=== PATIENT | female | born 1985 | race Caucasian/White ===

== ENCOUNTER 2016-05-10 19:07 | Emergency (ER) | payer OTHER ==
[2016-05-10 19:37] VITALS: BP 129/86; PULSE 84; TEMP 97.9; BMI 25.2
[2016-05-10] MEDS ORDERED: SODIUM CHLORIDE 1,000 ML IV STA (20:05)
--- NOTE | 2016-05-10 20:05 | PDOC ---
*Physical Exam - Vital Signs Last Vital Signs Temp Pulse Resp BP Pulse Ox 97.9 F 84 18 129/86 97 05/10/16 19:10 05/10/16 19:10 05/10/16 19:10 05/10/16 19:10 05/10/16 19:10 ED Treatment Course - LABORATORY CBC & Chemistry Diagram: 05/10/16 22:07 05/10/16 22:07 Medical Decision Making - Medical Decision Making 05/10/16 20:04 Pt seen by the Advanced Practice Provider under my direct supervision Ancillary studies reviewed I agree with plan as outlined by the Advanced Practice Provider TRAMAINE Kaufman *DC/Admit/Observation/Transfer Diagnosis at time of Disposition: Nephrolithiasis - Discharge Dispostion Disposition: HOME Condition at time of disposition: Stable - Prescriptions Prescriptions: Ketorolac Tromethamine [Toradol] 10 mg PO TID #21 tablet - Referrals Referrals: Justo Nixon MD [Staff Physician] - Jc Lyons [Primary Care Provider] - - Patient Instructions Printed Discharge Instructions: DI for Kidney Stones Additional Instructions: Increase fluid Take tylenol as needed for mild pain Rx: toradol as needed for severe pain Follow up with the urologist Strain your urine Return to the ER for severe/persistent/worsening symptoms - Post Discharge Activity Work/School Note: Back to Work
--- NOTE | 2016-05-10 20:15 | PDOC ---
History of Present Illness - General Chief Complaint: Urinary Problem Stated Complaint: BACK PAIN/PELVIC PAIN/URINARY PROBLEM Time Seen by Provider: 05/10/16 19:50 History Source: Patient Exam Limitations: No Limitations - History of Present Illness Travel History: No Timing/Duration: reports: intermittent Abdominal Pain Onset Location: reports: suprapubic, flank (right) Pain Radiation: reports: groin Activities at Onset: reports: none Past History - Travel Traveled outside of the country in the last 30 days: No Close contact w/someone who was outside of country & ill: No - Past Medical History Allergies/Adverse Reactions: Allergies Allergy/AdvReac Type Severity Reaction Status Date / Time No Known Allergies Allergy Verified 05/10/16 19:37 Home Medications: Ambulatory Orders Vitamin Tablet 1 tab PO DAILY 02/02/12 Cyclobenzaprine HCl [Flexeril -] 10 mg PO TID #21 tablet 12/01/15 Ketorolac Tromethamine [Toradol] 10 mg PO TID #21 tablet 05/10/16 - Immunization History Immunization Up to Date: Yes - Psycho/Social/Smoking Cessation Hx Anxiety: No Suicidal Ideation: No Smoking Status: No Smoking History: Never smoked Have you smoked in the past 12 months: No Number of Cigarettes Smoked Daily: 0 Information on smoking cessation initiated: No Hx Alcohol Use: No Drug/Substance Use Hx: No Substance Use Type: None Review of Systems - Review of Systems Able to Perform ROS?: Yes Comments:: 05/10/16 20:35 CONSTITUTIONAL: Absent: fever, chills, diaphoresis, generalized weakness, malaise, loss of appetite HEENT: Absent: rhinorrhea, nasal congestion, throat pain, throat swelling, difficulty swallowing, mouth swelling, ear pain, eye pain, visual Changes CARDIOVASCULAR: Absent: chest pain, loss of consciousness, palpitations, irregular heart rate, peripheral edema RESPIRATORY: Absent: cough, shortness of breath, dyspnea with exertion, orthopnea, wheezing, stridor, hemoptysis GASTROINTESTINAL: Absent: abdominal pain, abdominal distension, nausea, vomiting, diarrhea, constipation, melena, hematochezia GENITOURINARY: +dysuria, frequency, urgency, hesitancy, flank pain Absent: hematuria, genital pain MUSCULOSKELETAL: Absent: myalgia, arthralgia, joint swelling SKIN: Absent: rash, itching, pallor HEMATOLOGIC/IMMUNOLOGIC: Absent: easy bleeding, easy bruising, lymphadenopathy, frequent infections ENDOCRINE: Absent: unexplained weight gain, unexplained weight loss, heat intolerance, cold intolerance NEUROLOGIC: Absent: headache, focal weakness or paresthesias, dizziness, unsteady gait, seizure, mental status changes, bladder or bowel incontinence PSYCHIATRIC: Absent: anxiety, depression, suicidal or homicidal ideation, hallucinations. Is the patient limited Uzbek proficient: No *Physical Exam - Vital Signs Last Vital Signs Temp Pulse Resp BP Pulse Ox 97.9 F 84 18 129/86 97 05/10/16 19:10 05/10/16 19:10 05/10/16 19:10 05/10/16 19:10 05/10/16 19:10 - Physical Exam Comments: 05/10/16 20:36 GENERAL: Well developed, well nourished. Awake and alert. No acute distress. HEENT: Normocephalic, atraumatic. PERRLA, EOMI. No conjunctival pallor. Sclera are non- icteric. Moist mucous membranes. Oropharynx is clear. NECK: Supple. Full ROM. No JVD. Carotid pulses 2+ and symmetric, without bruits. No thyromegaly. No lymphadenopathy. CARDIOVASCULAR: Regular rate and rhythm. No murmurs, rubs, or gallops. Distal pulses are 2+ and symmetric. PULMONARY: No evidence of respiratory distress. Lungs clear to auscultation bilaterally. No wheezing, rales or rhonchi. ABDOMINAL: Soft. Non-tender. Non-distended. No rebound or guarding. No organomegaly. Normoactive bowel sounds. MUSCULOSKELETAL Right CVA tenderness. Normal range of motion at all joints. No bony deformities or tenderness. EXTREMITIES: No cyanosis. No clubbing. No edema. No calf tenderness. SKIN: Warm and dry. Normal capillary refill. No rashes. No jaundice. NEUROLOGICAL: Alert, awake, appropriate. Cranial nerves 2-12 intact. No deficits to light touch and temperature in face, upper extremities and lower extremities. No motor deficits in the in face, upper extremities and lower extremities. Normoreflexic in the upper and lower extremities. Normal speech. Toes are down- going bilaterally. Gait is normal without ataxia. PSYCHIATRIC: Cooperative. Good eye contact. Appropriate mood and affect. ED Treatment Course - LABORATORY CBC & Chemistry Diagram: 05/10/16 22:07 05/10/16 22:07 Progress Note - Progress Note Progress Note: 30-year-old female with a history of left-sided pyelonephritis presents to the emergency department complaining of 5/10 intermittent right flank pain radiating to the right suprapubic area with burning upon urination, frequency/ urgency/hesitancy. Patient denies any fever, chills, nausea/vomiting, general malaise, chest pain, shortness of breath, abdominal pains. *DC/Admit/Observation/Transfer Diagnosis at time of Disposition: Nephrolithiasis - Discharge Dispostion Disposition: HOME Condition at time of disposition: Stable Admit: No - Prescriptions Prescriptions: Ketorolac Tromethamine [Toradol] 10 mg PO TID #21 tablet - Referrals Referrals: Jc Lyons [Primary Care Provider] - Justo Nixon MD [Staff Physician] - - Patient Instructions Printed Discharge Instructions: DI for Kidney Stones Additional Instructions: Increase fluid Take tylenol as needed for mild pain Rx: toradol as needed for severe pain Follow up with the urologist Strain your urine Return to the ER for severe/persistent/worsening symptoms - Post Discharge Activity Work/School Note: Back to Work
[2016-05-10 21:42] LABS: URINE APPEARANCE SLCLOUDY; URINE BILIRUBIN NEGATIVE (NEGATIVE); URINE BLOOD 3+ (NEGATIVE); URINE COLOR YELLOW; URINE GLUCOSE (UA) NEGATIVE (NEGATIVE); URINE KETONE TRACE (NEGATIVE); URINE LEUK ESTERASE TRACE (NEGATIVE); URINE NITRITE NEGATIVE (NEGATIVE); URINE PROTEIN 1+ (NEGATIVE); URINE UROBILINOGEN NEGATIVE E.U./dl (0.2-1.0)
[2016-05-10 21:49] LABS: CALCIUM OXALATE CRYSTALS MODERATE /hpf (NONE SEEN); URINE HYALINE CAST 2 /lpf; URINE MUCUS MANY; URINE RBC 663 /hpf (0-3); URINE WBC 8 /hpf (3-5)
[2016-05-10] MEDS ORDERED: KETOROLAC TROMETHAMINE 30 MG/1 ML VIAL IVPUSH ONE (22:07)
[2016-05-10] MEDS ORDERED: KETOROLAC TROMETHAMINE 30 MG/1 ML VIAL ONE (22:11)
[2016-05-10 22:40] LABS: BASOPHIL 0.1 % (0-2.0); EOSINOPHIL 0.2 % (0-4.5); MCH 29.9 pg (25.7-33.7); MCHC 33.4 g/dl (32.0-36.0); MEAN CELL VOLUME 89.6 fl (80-96); MEAN PLT VOLUME 8.8 fl (7.5-11.1); NEUTROPHILS 84.7 % (42.8-82.8); PLATELET COUNT 307 K/MM3 (134-434); RDW 14.6 % (11.6-15.6); WHITE BLOOD COUNT 10.3 K/mm3 (4.0-10.0)
[2016-05-10 23:04] LABS: ALBUMIN 3.2 g/dl (3.4-5.0); ALK PHOS 84 U/L (45-117); ANION GAP 7 (8-16); BILIRUBIN,TOTAL 0.2 mg/dL (0.2-1.0); CALCIUM 8.5 mg/dL (8.5-10.1); CO2 28 mmol/L (21-32); CREATININE 0.6 mg/dL (0.55-1.02); GLUCOSE,RANDOM 90 mg/dL (74-106); SGOT/AST 37 U/L (15-37); SGPT/ALT 76 U/L (12-78); TOT PROT 7.7 g/dl (6.4-8.2)
== END 2016-05-11 | disposition home or self-care (01) ==
LOC: JER 19:07 → SUPCPDRO 19:07 → JER 05-11
PROC: 3E0337Z Introduction of Electrolytic and Water Balance Substance into Peripheral Vein, Percutaneous Approach (ICD-10-PCS; principal; 2016-05-10)
PROC: 3E0333Z Introduction of Anti-inflammatory into Peripheral Vein, Percutaneous Approach (ICD-10-PCS; 2016-05-10)
DX: N20.0 Calculus of kidney (principal)
CPT/HCPCS: 36415; 74176; 80053; 81003; 81015; 84703; 85025; 87086; 96361; 96374; 99282-25

== ENCOUNTER → 2016-09-08 | Emergency (ER) | payer OTHER ==
[~2016-09-08] MED LIST: ACETAMINOPHEN 1000 MG/100 ML VIAL (NON FORMULARY) IVPB ONE; FAMOTIDINE 20 MG/50 ML IVPB 50 ML IVPB ONE; LEVOFLOXACIN 500 MG TABLET (FP) ONE; LEVOFLOXACIN 500 MG TABLET (FP) PO ONE; MAG HYDROX/AL HYDROX/SIMETH 30 ML UNIT-DOSE CUP ONE; MAG HYDROX/AL HYDROX/SIMETH 30 ML UNIT-DOSE CUP PO ONE; ONDANSETRON 4 MG/2 ML VIAL IVPB ONE; ONDANSETRON 4 MG/2 ML VIAL ONE; SODIUM CHLORIDE 1,000 ML IV STA; metroNIDAZOLE 250 MG TABLET ONE; metroNIDAZOLE 250 MG TABLET PO ONE
[2016-09-08 23:24] VITALS: TEMP 98.3; BMI 22.2
--- NOTE | 2016-09-08 23:59 | PDOC ---
History of Present Illness - General History Source: Patient Exam Limitations: No Limitations - History of Present Illness Initial Comments: 09/09/16 00:06 The patient is a 31 year old female with past medical history of HIV (on heart therapy) and fungal esophagitis who presents to the ED with complaints of abdominal pain and diarrhea for the past two weeks with onset of nausea and vomiting today. The patient states the pain is diffuse but mostly felt in her lower abdomen and epigastrium and experiences daily loose stools. She reports nonbloody and nonbilious vomiting. She states her symptoms are very similar to when she had her fungal esophagitis. The patient denies any recent illness, fever, chills, chest pain, shortness of breath, or urinary symptoms. The patient reports following up with Dr. Mcghee. <Brandy Swan - Last Filed: 09/09/16 02:37> - General History Source: Patient Exam Limitations: No Limitations <Austyn Hankins - Last Filed: 09/09/16 03:03> - General Chief Complaint: Nausea/Vomiting Stated Complaint: Vomiting/Diarrhea Time Seen by Provider: 09/08/16 23:35 Past History <Brandy Swan - Last Filed: 09/09/16 02:37> - Past Medical History Other medical history: Pt denies - Immunization History Immunization Up to Date: Yes - Psycho/Social/Smoking Cessation Hx Anxiety: No Suicidal Ideation: No Smoking Status: No Smoking History: Never smoked Have you smoked in the past 12 months: No Number of Cigarettes Smoked Daily: 0 Information on smoking cessation initiated: No Hx Alcohol Use: No Drug/Substance Use Hx: No Substance Use Type: None <Austyn Hankins - Last Filed: 09/09/16 03:03> - Past Medical History Allergies/Adverse Reactions: Allergies Allergy/AdvReac Type Severity Reaction Status Date / Time No Known Allergies Allergy Verified 09/08/16 23:21 Home Medications: Ambulatory Orders Vitamin Tablet 1 tab PO DAILY 02/02/12 Cyclobenzaprine HCl [Flexeril -] 10 mg PO TID #21 tablet 12/01/15 Ketorolac Tromethamine [Toradol] 10 mg PO TID #21 tablet 05/10/16 Ciprofloxacin [Cipro -] 500 mg PO Q12H PRN #20 tablet 09/09/16 Famotidine [Pepcid] 20 mg PO BID PRN #14 tablet 09/09/16 Mag Hydrox/Al Hydrox/Simeth [Mylanta Suspension -] 30 ml PO Q6H PRN #1 bottle Metronidazole [Flagyl -] 500 mg PO TID #30 tablet 09/09/16 Ondansetron HCl [Zofran] 4 mg PO Q8H PRN #12 tablet 09/09/16 Review of Systems - Review of Systems Able to Perform ROS?: Yes Comments:: 09/09/16 00:06 GENERAL/CONSTITUTIONAL: No fever or chills. No weakness. HEAD, EYES, EARS, NOSE AND THROAT: No change in vision. No ear pain or discharge. No sore throat. CARDIOVASCULAR: No chest pain or shortness of breath. RESPIRATORY: No cough, wheezing, or hemoptysis. GASTROINTESTINAL: Present: nausea, vomiting, diarrhea, abdominal pain No constipation. GENITOURINARY: No dysuria, frequency, or change in urination. MUSCULOSKELETAL: No joint or muscle swelling or pain. No neck or back pain. SKIN: No rash NEUROLOGIC: No headache, vertigo, loss of consciousness, or change in strength/ sensation. ENDOCRINE: No increased thirst. No abnormal weight change. HEMATOLOGIC/LYMPHATIC: No anemia, easy bleeding, or history of blood clots. ALLERGIC/IMMUNOLOGIC: No hives or skin allergy. All Other Systems: Reviewed and Negative <Brandy Swan - Last Filed: 09/09/16 02:37> *Physical Exam - Vital Signs Last Vital Signs Temp Pulse Resp BP Pulse Ox 98.3 F 114 H 20 138/74 98 09/08/16 23:21 09/08/16 23:21 09/08/16 23:21 09/08/16 23:21 09/08/16 23:21 - Physical Exam Comments: 09/09/16 00:08 GENERAL: Awake, alert, and fully oriented, in no acute distress HEAD: No signs of trauma EYES: PERRLA, EOMI, sclera anicteric, conjunctiva clear ENT: Auricles normal inspection, hearing grossly normal, nares patent, oropharynx clear without exudates. Moist mucosa NECK: Normal ROM, supple, no lymphadenopathy, JVD, or masses LUNGS: Breath sounds equal, clear to auscultation bilaterally. No wheezes, and no crackles HEART: Regular rate and rhythm, normal S1 and S2, no murmurs, rubs or gallops ABDOMEN: Epigastric tenderness, normoactive bowel sounds. No guarding, no rebound. No masses EXTREMITIES: Normal range of motion, no edema. No clubbing or cyanosis. No cords, erythema, or tenderness NEUROLOGICAL: Cranial nerves II through XII grossly intact. Normal speech, normal gait SKIN: Warm, Dry, normal turgor, no rashes or lesions noted. <Brandy Swan - Last Filed: 09/09/16 02:37> - Vital Signs Last Vital Signs Temp Pulse Resp BP Pulse Ox 98.3 F 114 H 20 138/74 98 09/08/16 23:21 09/08/16 23:21 09/08/16 23:21 09/08/16 23:21 09/08/16 23:21 <NhiAustyn - Last Filed: 09/09/16 03:03> ED Treatment Course - LABORATORY CBC & Chemistry Diagram: 09/08/16 23:50 09/08/16 23:50 - ADDITIONAL ORDERS Additional order review: 09/08/16 23:50 RBC 4.75 D MCV 86.4 MCHC 33.5 RDW 13.0 D MPV 9.0 Neutrophils % 81.6 Lymphocytes % 12.5 D Monocytes % 5.4 Eosinophils % 0.4 D Basophils % 0.1 - RADIOLOGY Radiograph Interpretation: 09/09/16 01:37 A prior examination dated May 10, 2016 was reviewed. Findings: The lung bases are clear. The liver, gallbladder, spleen and pancreas all have a normal appearance. The adrenal glands are unremarkable. The kidneys have a normal appearance and enhance symmetrically. There is no evidence of urinary tract obstruction. The gastrointestinal tract does not appear obstructed. A long segment of slightly thickwalled hyperemic bowel is noted in the mid to lower abdomen including segments of distal ileum. The colon is fluid-filled. There is no mural thickening or infiltration of the mesocolon to indicate colitis. The uterus is anteverted. No adnexal masses are seen. The urinary bladder is nondistended. No abdominal or pelvic adenopathy is seen. No lytic or blastic destructive osseous lesions are seen. Impression: Slightly thickened hyperemic segments of small bowel in the mid to lower abdomen may represent enteritis. No infiltration of the mesentery is noted. Fluid-filled colon consistent with diarrhea. No mural thickening or infiltration of the mesocolon is seen to indicate colitis. THIS DOCUMENT HAS BEEN ELECTRONICALLY SIGNED Hubert Leal M.D. Exam: Abdominal sonogram Images: 52 Clinical indication: Right upper quadrant sonogram. Findings: The pancreas has a normal appearance and echotexture. The visualized aorta and proximal IVC are unremarkable. The liver has a normal appearance and echotexture measures 15.3 cm in length. The right kidney has a normal appearance and echotexture measures 10.6 cm in length. No parenchymal mass, shadowing calculus or hydronephrosis is seen. Dependent sludge is noted in the gallbladder. The CBD measures 3 mm in diameter within normal limits. There is no mural thickening or pericholecystic fluid. Hepatopetal flow is demonstrated in the main portal vein. Impression: Normal appearance of the liver, Sludge in the gallbladder. No mural thickening or pericholecystic fluid. CBD within normal limits. THIS DOCUMENT HAS BEEN ELECTRONICALLY SIGNED Hubert Leal M.D. <Brandy Swan - Last Filed: 09/09/16 02:37> - LABORATORY CBC & Chemistry Diagram: 09/08/16 23:50 09/08/16 23:50 - RADIOLOGY Radiology Studies Ordered: Category Date Time Status ABDOMEN & PELVIS CT WITH CONTR [CT] Stat CT Scan 09/08/16 23:52 Ordered <Austyn Hankins - Last Filed: 09/09/16 03:03> Medical Decision Making - Medical Decision Making 09/08/16 23:57 A portion of this note was documented by scribe services under my direction. I have reviewed the details of the note, within reason, and agree with the documentation with the following case summary and management plan written by me. Patient treated in the ED. Nursing notes are reviewed and incorporated into the medical decision-making. Vital signs reviewed. Peripheral IV access obtained by the nurse, laboratory studies are drawn and sent, reviewed and interpreted by myself. Vital Signs Temp Pulse Resp BP Pulse Ox 98.3 F 114 H 20 138/74 98 09/08/16 23:21 09/08/16 23:21 09/08/16 23:21 09/08/16 23:21 09/08/16 23:21 31 year old female history of HIV on heart therapy, unknown CD4 count on heart therapy, history of fungal esophagitis presents with diarrhea and abdominal discomfort for 2 weeks. Patient has had frequent loose stooling but no fevers or chills. Start develop nausea and vomiting today. Denies fevers. Came to the ED for further evaluation. We'll need to rule out HIV-associated diarrhea. Colitis is within the differential. We'll obtain labs, CAT scan the abdomen pelvis and reassess. 09/09/16 02:39 CBC, BMP 09/08/16 23:50 09/08/16 23:50 CMP Sodium 136 mmol/L (136-145) 09/08/16 23:50 Potassium 3.3 mmol/L (3.5-5.1) L 09/08/16 23:50 Chloride 103 mmol/L (98-107) 09/08/16 23:50 Carbon Dioxide 22 mmol/L (21-32) D 09/08/16 23:50 Anion Gap 11 (8-16) 09/08/16 23:50 BUN 28 mg/dL (7-18) H D 09/08/16 23:50 Creatinine 0.8 mg/dL (0.55-1.02) D 09/08/16 23:50 Creat Clearance w eGFR > 60 (>60) 09/08/16 23:50 Random Glucose 130 mg/dL (74-106) H D 09/08/16 23:50 Calcium 9.5 mg/dL (8.5-10.1) 09/08/16 23:50 Phosphorus 3.8 mg/dL (2.5-4.9) 09/08/16 23:50 Magnesium 2.3 mg/dL (1.8-2.4) 09/08/16 23:50 Total Bilirubin 0.4 mg/dL (0.2-1.0) D 09/08/16 23:50 AST 73 U/L (15-37) H D 09/08/16 23:50 ALT 96 U/L (12-78) H D 09/08/16 23:50 Alkaline Phosphatase 78 U/L (45-117) 09/08/16 23:50 Total Protein 10.6 g/dl (6.4-8.2) H D 09/08/16 23:50 Albumin 4.6 g/dl (3.4-5.0) D 09/08/16 23:50 Lipase 143 U/L (73-393) 09/08/16 23:50 Serum , Qual Negative 09/08/16 23:50 The patient's CAT scan demonstrates findings consistent with thickened hyperemic segments of small bowel which could represent enteritis and likely diarrhea. No colitis is appreciated. Patient's lab demonstrate mildly elevated AST and ALT. Right upper quadrant ultrasound was ordered which demonstrate normal appearance of liver and sludge in the gallbladder but no thickening or pericholecystitc fluid. 09/09/16 02:58 Patient reports feeling better. We'll give ciprofloxacin and Flagyl given the length of symptoms and her history. Patient will follow up with her doctor, Dr. Mcghee. Given her LFTs, I advised patient to follow up with her doctor regarding the results. Copy results given. I discussed the physical exam findings, ancillary test results and final diagnoses with the patient. I answered all of the patient's questions. The patient was satisfied with the care received and felt comfortable with the discharge plan and treatment plan. The patient will call their primary care physician within 24 hours to arrange follow-up and will return to the Emergency Department with any new, persistant or worsening symptoms. <Austyn Hankins - Last Filed: 09/09/16 03:03> *DC/Admit/Observation/Transfer - Attestations Scribe Attestion: 09/09/16 00:09 Documentation prepared by Brandy Swan, acting as medical receptionist assistant for Austyn Hankins MD. <Brandy Swan - Last Filed: 09/09/16 02:37> - Discharge Dispostion Admit: No <Austyn Hankins - Last Filed: 09/09/16 03:03> Diagnosis at time of Disposition: Diarrhea Qualifiers: Diarrhea type: unspecified type Qualified Code(s): R19.7 - Diarrhea, unspecified - Discharge Dispostion Disposition: HOME Condition at time of disposition: Improved - Prescriptions Prescriptions: Ciprofloxacin [Cipro -] 500 mg PO Q12H PRN #20 tablet PRN Reason: Diarrhea Metronidazole [Flagyl -] 500 mg PO TID #30 tablet Mag Hydrox/Al Hydrox/Simeth [Mylanta Suspension -] 30 ml PO Q6H PRN #1 bottle PRN Reason: Abdominal Pain Famotidine [Pepcid] 20 mg PO BID PRN #14 tablet PRN Reason: Abdominal Pain Ondansetron HCl [Zofran] 4 mg PO Q8H PRN #12 tablet PRN Reason: Nausea - Referrals Referrals: Zach Mcghee MD [Staff Physician] - - Patient Instructions Printed Discharge Instructions: Diarrhea Additional Instructions: Please follow up with DR. Mcghee. Drink plenty of fluids and rest. Take the antibiotics as prescribed.
[2016-09-09] LABS: BASOPHIL 0.1 % (0-2.0); EOSINOPHIL 0.4 % (0-4.5); MCH 28.9 pg (25.7-33.7); MCHC 33.5 g/dl (32.0-36.0); MEAN CELL VOLUME 86.4 fl (80-96); NEUTROPHILS 81.6 % (42.8-82.8); PLATELET COUNT 364 K/MM3 (134-434); WHITE BLOOD COUNT 8.6 K/mm3 (4.0-10.0)
[2016-09-09 00:24] LABS: INR 1.25 (0.82-1.09); PROTHROMBIN TIME (PATIENT) 13.8 SEC (9.98-11.88)
[2016-09-09 00:25] LABS: ALBUMIN 4.6 g/dl (3.4-5.0); ALK PHOS 78 U/L (45-117); ANION GAP 11 (8-16); BILIRUBIN,TOTAL 0.4 mg/dL (0.2-1.0); CALCIUM 9.5 mg/dL (8.5-10.1); CO2 22 mmol/L (21-32); CREATININE 0.8 mg/dL (0.55-1.02); GLUCOSE,RANDOM 130 mg/dL (74-106); MAGNESIUM 2.3 mg/dL (1.8-2.4); PHOSPHOROUS 3.8 mg/dL (2.5-4.9); SGOT/AST 73 U/L (15-37); SGPT/ALT 96 U/L (12-78)
[2016-09-09 00:26] LABS: TOT PROT 10.6 g/dl (6.4-8.2)
[2016-09-09 00:27] LABS: ACTIVATED PTT 35.1 SECONDS (26.9-34.4)
[2016-09-09 03:32] VITALS: BP 114/76; PULSE 79
== END | disposition home or self-care (01) ==
LOC: JER 22:49
PROC: 3E033GC Introduction of Other Therapeutic Substance into Peripheral Vein, Percutaneous Approach (ICD-10-PCS; principal; 2016-09-08)
PROC: 3E033NZ Introduction of Analgesics, Hypnotics, Sedatives into Peripheral Vein, Percutaneous Approach (ICD-10-PCS; 2016-09-08)
PROC: 3E033GC Introduction of Other Therapeutic Substance into Peripheral Vein, Percutaneous Approach (ICD-10-PCS; 2016-09-08)
DX: R19.7 Diarrhea, unspecified (principal); Z21 Asymptomatic human immunodeficiency virus [HIV] infection status; B37.81 Candidal esophagitis
CPT/HCPCS: 36415; 74177-TC; 76705-TC; 80053; 81003; 83690; 83735; 84100; 84703; 85025; 85610; 85730; 96365; 96375; 99282-25

== ENCOUNTER 2016-10-03 11:17 | Inpatient (IN) | payer OTHER ==
[2016-10-03 11:28] VITALS: BMI 20.6
--- NOTE | 2016-10-03 11:41 | PDOC ---
History of Present Illness - General Chief Complaint: Sore Throat Stated Complaint: THROAT PAIN (PCP SENT) Time Seen by Provider: 10/03/16 11:40 History Source: Patient Exam Limitations: No Limitations - History of Present Illness Initial Comments: CHIEF COMPLAINT: HISTORY OF PRESENT ILLNESS: Vital signs on arrival are notable for pulse of 105. REVIEW OF SYSTEMS: GENERAL/CONSTITUTIONAL: Subjective fever/chills. No weakness. No weight change. HEAD, EYES, EARS, NOSE AND THROAT: No change in vision. No ear pain or discharge. No sore throat. CARDIOVASCULAR: No chest pain or shortness of breath. RESPIRATORY: No cough, wheezing, or hemoptysis. GASTROINTESTINAL: See history of present illness. GENITOURINARY: No dysuria, frequency, or change in urination. MUSCULOSKELETAL: No joint or muscle swelling or pain. No neck or back pain. SKIN: No rash or easy bruising. NEUROLOGIC: No headache, vertigo, loss of consciousness, or loss of sensation. PHYSICAL EXAM: GENERAL: The patient is awake, alert, and fully oriented, in no acute distress. HEAD: Normal with no signs of trauma. ENT: Pupils equal, round and reactive to light, extraocular movements intact, sclera anicteric, conjunctiva clear. Neck supple. LUNGS: Clear to auscultation bilaterally. Normal excursion. No respiratory distress or use of accessory muscles. CV: RRR, S1/S2, no MRG. Cap refill < 2 sec. ABDOMEN: Soft, non-distended, non-tender even to deep palpation, no hepatomegaly or splenomegaly, no masses. EXTREMITIES: Normal range of motion, no edema. NEUROLOGICAL: Normal speech, normal gait. CN II-XII grossly intact. PSYCH: Normal mood, normal affect. SKIN: Warm, dry, normal turgor, no rashes or lesions noted. Past History - Past Medical History Allergies/Adverse Reactions: Allergies Allergy/AdvReac Type Severity Reaction Status Date / Time No Known Allergies Allergy Verified 10/03/16 11:26 Home Medications: Ambulatory Orders Vitamin Tablet 1 tab PO DAILY 02/02/12 Cyclobenzaprine HCl [Flexeril -] 10 mg PO TID #21 tablet 12/01/15 Ketorolac Tromethamine [Toradol] 10 mg PO TID #21 tablet 05/10/16 Ciprofloxacin [Cipro -] 500 mg PO Q12H PRN #20 tablet 09/09/16 Famotidine [Pepcid] 20 mg PO BID PRN #14 tablet 09/09/16 Mag Hydrox/Al Hydrox/Simeth [Mylanta Suspension -] 30 ml PO Q6H PRN #1 bottle Metronidazole [Flagyl -] 500 mg PO TID #30 tablet 09/09/16 Ondansetron HCl [Zofran] 4 mg PO Q8H PRN #12 tablet 09/09/16 - Immunization History Immunization Up to Date: Yes - Psycho/Social/Smoking Cessation Hx Anxiety: No Suicidal Ideation: No Smoking Status: No Smoking History: Never smoked Have you smoked in the past 12 months: No Number of Cigarettes Smoked Daily: 0 Hx Alcohol Use: No Drug/Substance Use Hx: No Substance Use Type: None *Physical Exam - Vital Signs Last Vital Signs Temp Pulse Resp BP Pulse Ox 98.5 F 105 H 20 110/75 97 10/03/16 11:27 10/03/16 11:27 10/03/16 11:27 10/03/16 11:27 10/03/16 11:27 Medical Decision Making - Medical Decision Making A/P:
[2016-10-03] MEDS ORDERED: SODIUM CHLORIDE 1,000 ML IV STA (12:21)
--- NOTE | 2016-10-03 12:24 | PDOC ---
History of Present Illness - General Chief Complaint: Sore Throat Stated Complaint: THROAT PAIN (PCP SENT) Time Seen by Provider: 10/03/16 11:40 History Source: Patient - History of Present Illness Timing/Duration: reports: constant Quality: reports: severe Past History - Past Medical History Allergies/Adverse Reactions: Allergies Allergy/AdvReac Type Severity Reaction Status Date / Time No Known Allergies Allergy Verified 10/03/16 11:26 Home Medications: Ambulatory Orders Elviteg/Le/Emtric/Tenofo Dis [Stribild Tablet] 1 each PO DAILY 10/03/16 Potassium Chloride [K-Dur -] 20 meq PO BID 10/03/16 Sulfamethoxazole/Trimethoprim [Bactrim Ds Tablet] 1 each PO DAILY 10/03/16 - Immunization History Immunization Up to Date: Yes - Psycho/Social/Smoking Cessation Hx Anxiety: No Suicidal Ideation: No Smoking Status: No Smoking History: Never smoked Have you smoked in the past 12 months: No Number of Cigarettes Smoked Daily: 0 Hx Alcohol Use: No Drug/Substance Use Hx: No Substance Use Type: None Review of Systems - Review of Systems Constitutional: No: Chills, Fever Respiratory: No: Shortness of Breath ABD/GI: No: Diarrhea, Nausea, Vomiting : No: Dysuria *Physical Exam - Vital Signs Last Vital Signs Temp Pulse Resp BP Pulse Ox 98.5 F 105 H 20 110/75 97 10/03/16 11:27 10/03/16 11:27 10/03/16 11:27 10/03/16 11:27 10/03/16 11:27 - Physical Exam General Appearance: Yes: Appropriately Dressed. No: Apparent Distress HEENT: positive: Normal Voice, Thrush Neck: positive: Supple. negative: Lymphadenopathy (R), Lymphadenopathy (L) Respiratory/Chest: positive: Normal Breath Sounds. negative: Respiratory Distress Cardiovascular: positive: Regular Rate, S1, S2 Gastrointestinal/Abdominal: positive: Soft. negative: Tender Extremity: positive: Normal Inspection Integumentary: positive: Dry, Warm Neurologic: positive: Fully Oriented, Alert, Normal Mood/Affect ED Treatment Course - LABORATORY CBC & Chemistry Diagram: 10/03/16 12:45 10/03/16 12:50 Medical Decision Making - Medical Decision Making 10/03/16 12:21 31-year-old female, history of HIV/AIDs w/ CD4 of 18, on medication, unkown VL, treated for fungal infection of her esophagus several months ago (had abd pain and diarrhea at the time) and now sent to ED by her GI doctor, Dr. Putnam for dysphagia 2 weeks, unable to eat or drink anything 2/2 pain as per patient. Also reports nausea, no vomiting. No abdominal pain, fever or chills. See exam HIV/AIDs w/ candidiasis esophagitis several months ago, p/w dysphagia w/ inability to jacob po x 2 weeks, sent in for admission for scope by GI Stable and well tammy w/ ?thrush on oropharynx -IVF -labs -admit 10/03/16 12:37 10/03/16 12:40 10/03/16 13:14 10/03/16 15:10 K 2.8. Po and IV K in progress. Will initiate IV fluconazole as d/w Dr Roque. Pt admitted. At this time, after several hrs, no callback from Dr Putnam *DC/Admit/Observation/Transfer Diagnosis at time of Disposition: Odynophagia - Discharge Dispostion Condition at time of disposition: Fair Admit: Yes
[2016-10-03 12:59] LABS: BASOPHIL 0.2 % (0-2.0); EOSINOPHIL 0.5 % (0-4.5); MCH 29.8 pg (25.7-33.7); MCHC 34.3 g/dl (32.0-36.0); MEAN CELL VOLUME 86.8 fl (80-96); MEAN PLT VOLUME 9.2 fl (7.5-11.1); NEUTROPHILS 79.8 % (42.8-82.8); PLATELET COUNT 253 K/MM3 (134-434); RDW 13.9 % (11.6-15.6); WHITE BLOOD COUNT 5.3 K/mm3 (4.0-10.0)
[2016-10-03 13:10] LABS: INR 1.38 (0.82-1.09); PROTHROMBIN TIME (PATIENT) 15.3 SEC (9.98-11.88)
[2016-10-03 13:37] LABS: ALBUMIN 3.9 g/dl (3.4-5.0); ANION GAP 11 (8-16); BILIRUBIN,TOTAL 0.6 mg/dL (0.2-1.0); CALCIUM 8.7 mg/dL (8.5-10.1); CO2 25 mmol/L (21-32); CREATININE 0.6 mg/dL (0.55-1.02); GLUCOSE,RANDOM 77 mg/dL (74-106); SGOT/AST 27 U/L (15-37); SGPT/ALT 34 U/L (12-78); TOT PROT 9.1 g/dl (6.4-8.2)
[2016-10-03 13:38] LABS: ALK PHOS 65 U/L (45-117)
[2016-10-03] MEDS ORDERED: POTASSIUM CHLORIDE ORAL LIQUID 20 MEQ/15 ML PO ONE (13:41)
[2016-10-03] MEDS ORDERED: FLUCONAZOLE 200 MG/D5W 100 ML IVPB ONE (15:09)
[2016-10-03] MEDS: KCL 10 MEQ IVPB 100 ML IVPB SCH ×3 (15:16→18:55)
--- NOTE | 2016-10-03 15:30 | PDOC ---
*Physical Exam - Vital Signs Last Vital Signs Temp Pulse Resp BP Pulse Ox 98.5 F 105 H 20 110/75 97 10/03/16 11:27 10/03/16 11:27 10/03/16 11:27 10/03/16 11:27 10/03/16 11:27 ED Treatment Course - LABORATORY CBC & Chemistry Diagram: 10/03/16 12:45 10/03/16 12:50 - ADDITIONAL ORDERS Additional order review: Laboratory Results 10/03/16 10/03/16 10/03/16 12:50 12:45 12:45 INR 1.38 H Sodium 137 Potassium 2.8 L* Chloride 101 Carbon Dioxide 25 Anion Gap 11 BUN 21 H D Creatinine 0.6 D Creat Clearance w eGFR > 60 Random Glucose 77 D Calcium 8.7 Total Bilirubin 0.6 D AST 27 D ALT 34 D Alkaline Phosphatase 65 Total Protein 9.1 H Albumin 3.9 Serum , Qual Blood Type O POSITIVE Antibody Screen Negative 10/03/16 12:45 INR Sodium Potassium Chloride Carbon Dioxide Anion Gap BUN Creatinine Creat Clearance w eGFR Random Glucose Calcium Total Bilirubin AST ALT Alkaline Phosphatase Total Protein Albumin Serum , Qual Negative Blood Type Antibody Screen 10/03/16 12:45 RBC 3.93 MCV 86.8 MCHC 34.3 RDW 13.9 MPV 9.2 Neutrophils % 79.8 Lymphocytes % 11.7 Monocytes % 7.8 Eosinophils % 0.5 Basophils % 0.2 - Medications Given in the ED: ED Medications Discontinued Medications Generic Name Dose Route Start Last Admin Trade Name Freq PRN Reason Stop Dose Admin Sodium Chloride 1,000 mls @ 1,000 mls/hr 10/03/16 12:21 10/03/16 12:57 Normal Saline - IV 10/03/16 13:20 1,000 mls/hr ASDIR STA Administration Potassium Chloride 40 meq 10/03/16 13:41 10/03/16 14:01 Potassium Chloride Oral Liquid PO 10/03/16 13:42 40 meq ONCE ONE Administration Medical Decision Making - Medical Decision Making 10/03/16 15:30 Patient seen and examined with TRAMAINE Francisco. Agree with history, assessment, and plan. *DC/Admit/Observation/Transfer Diagnosis at time of Disposition: Odynophagia - Discharge Dispostion Condition at time of disposition: Fair
[2016-10-03] MEDS ORDERED: KCL 10 MEQ IVPB 100 ML IVPB ONE (16:30)
--- NOTE | 2016-10-03 19:33 | CON.GI ---
Consult Consult Specialty:: gastroenterology Reason for Consultation:: odynophagia - History of Present Illness History of Present Illness: 31 y/o fmelae with HIV infection, low CD$, lost her insurance off anti retroviral for a few months developed progressive odynophagia for the past 2 weeks associated with 10 lb weight loss - History Source History Provided By: Patient - Past Medical History Gastrointestinal: No: Ascites, Constipation, Crohn's Disease, Diverticulitis, Diverticulosis, GI Bleed, Hemorrhoids, Hiatal Hernia ...LMP: 09/29/16 ...: No - Alcohol/Substance Use Hx Alcohol Use: No - Smoking History Smoking history: Never smoked Have you smoked in the past 12 months: No Aproximately how many cigarettes per day: 0 Home Medications - Allergies Allergies/Adverse Reactions: Allergies Allergy/AdvReac Type Severity Reaction Status Date / Time No Known Allergies Allergy Verified 10/03/16 11:26 - Home Medications Home Medications: Ambulatory Orders Elviteg/Le/Emtric/Tenofo Dis [Stribild Tablet] 1 each PO DAILY 10/03/16 Potassium Chloride [K-Dur -] 20 meq PO BID 10/03/16 Sulfamethoxazole/Trimethoprim [Bactrim Ds Tablet] 1 each PO DAILY 10/03/16 Review of Systems - Review of Systems Constitutional: denies: Fever HENT: reports: Difficult Swallowing Neck: denies: Decreased ROM Cardiovascular: denies: Chest Pain Respiratory: denies: Cough Gastrointestinal: denies: Abdominal Pain Physical Exam-GI Vital Signs: Vital Signs Temperature 99 F 10/03/16 18:00 Pulse Rate 103 H 10/03/16 18:00 Respiratory Rate 16 10/03/16 18:00 Blood Pressure 122/73 10/03/16 18:00 O2 Sat by Pulse Oximetry (%) 99 10/03/16 16:40 Constitutional: Yes: Well Nourished Eyes: Yes: Conjunctiva Clear HENT: Yes: Atraumatic Neck: Yes: Supple Cardiovascular: Yes: Regular Rate and Rhythm Respiratory: Yes: CTA Bilaterally ...Palpate: Yes: Soft. No: Firm/Rigid, Guarding, Hepatomegaly, Mass, Pulsatile Mass, Splenomegaly Labs: INR, PTT INR 1.38 (0.82-1.09) H 10/03/16 12:45 Problem List - Problems (1) Odynophagia Assessment/Plan: r/o CMV, Herpes, bashir R> for EGD magic mouth wash Code(s): R13.10 - DYSPHAGIA, UNSPECIFIED
[2016-10-03] MEDS ORDERED: PATIENT'S OWN MEDICATION (NON-FORMULARY) (Elviteg/Cobi/Emtric/Tenofo Dis [Stribild Tablet] PO SCH (20:15)
[2016-10-03] MEDS: DEXTROSE 5%-NORMAL SALINE 1,000 ML IV SCH (21:00)
[2016-10-03] MEDS: PANTOPRAZOLE 40 MG TABLET (FP) PO SCH (21:48)
[2016-10-03] MEDS: POTASSIUM CHLORIDE TABS 20 MEQ TABLET.ER (FP) PO SCH (21:48)
[2016-10-04 07:43] LABS: BASOPHIL 0.1 % (0-2.0); EOSINOPHIL 1.2 % (0-4.5); MEAN CELL VOLUME 88.3 fl (80-96); MEAN PLT VOLUME 9.6 fl (7.5-11.1); NEUTROPHILS 71.9 % (42.8-82.8); PLATELET COUNT 220 K/MM3 (134-434); WHITE BLOOD COUNT 3.4 K/mm3 (4.0-10.0)
[2016-10-04 08:01] LABS: ANION GAP 6 (8-16); BILIRUBIN,TOTAL 0.4 mg/dL (0.2-1.0); CO2 25 mmol/L (21-32); CREATININE 0.5 mg/dL (0.55-1.02); GLUCOSE,RANDOM 98 mg/dL (74-106); SGOT/AST 26 U/L (15-37); SGPT/ALT 28 U/L (12-78); TOT PROT 7.3 g/dl (6.4-8.2)
[2016-10-04 08:02] LABS: ALK PHOS 50 U/L (45-117)
[2016-10-04] MEDS: PANTOPRAZOLE 40 MG TABLET (FP) PO SCH (09:44)
[2016-10-04] MEDS: POTASSIUM CHLORIDE TABS 20 MEQ TABLET.ER (FP) PO SCH ×2 (09:44→21:30)
[2016-10-04] MEDS ORDERED: SULFAMETHOXAZOLE/TRIMETHOPRIM 800MG/160MG D.S. TABLET PO SCH (10:00)
--- NOTE | 2016-10-04 11:30 | HP ---
Admitting History and Physical - Admission History of Present Illness: Pt is a 31 y/o female w/ PMH significant for HIV infection, low CD count. Pt had lost her insurance and stopped all her anti retroviral meds for a few months. Pt saw her GI bc of progressive odynophagia for the past 2 weeks. This was associated with decreased appetitie and a 10 lb weight loss. Pt denies any abdominal pain and no nausea/vomiting. - Past Medical History Gastrointestinal: No: Ascites, Constipation, Crohn's Disease, Diverticulitis, Diverticulosis, GI Bleed, Hemorrhoids, Hiatal Hernia ...LMP: 09/29/16 ...: No Infectious Disease: Yes: HIV - Smoking History Smoking history: Never smoked Have you smoked in the past 12 months: No Aproximately how many cigarettes per day: 0 - Alcohol/Substance Use Hx Alcohol Use: No Home Medications - Allergies Allergies/Adverse Reactions: Allergies Allergy/AdvReac Type Severity Reaction Status Date / Time No Known Allergies Allergy Verified 10/03/16 11:26 - Home Medications Home Medications: Ambulatory Orders Elviteg/Le/Emtric/Tenofo Dis [Stribild Tablet] 1 each PO DAILY 10/03/16 Potassium Chloride [K-Dur -] 20 meq PO BID 10/03/16 Sulfamethoxazole/Trimethoprim [Bactrim Ds Tablet] 1 each PO DAILY 10/03/16 Family Disease History - Family Disease History Family History: Unremarkable Review of Systems - Review of Systems Constitutional: reports: Loss of Appetite, Malaise HENT: reports: Difficult Swallowing Neck: reports: No Symptoms Cardiovascular: reports: No Symptoms Respiratory: reports: No Symptoms Gastrointestinal: reports: No Symptoms Physical Examination Vital Signs: Vital Signs Temperature 98 F 10/03/16 22:00 Pulse Rate 100 H 10/03/16 22:00 Respiratory Rate 20 10/03/16 22:00 Blood Pressure 111/65 10/03/16 22:00 O2 Sat by Pulse Oximetry (%) 99 10/03/16 21:00 Constitutional: Yes: No Distress Eyes: Yes: WNL, Conjunctiva Clear, EOM Intact HENT: Yes: WNL, Atraumatic, Normocephalic Neck: Yes: WNL, Supple, Trachea Midline Cardiovascular: Yes: WNL, Regular Rate and Rhythm Respiratory: Yes: WNL, Regular, CTA Bilaterally Gastrointestinal: Yes: WNL, Normal Bowel Sounds Musculoskeletal: Yes: WNL Extremities: Yes: WNL Edema: No Neurological: Yes: WNL, Alert, Oriented ...Motor Strength: WNL Labs: CBC, BMP 10/04/16 06:00 10/04/16 06:00 Problem List - Problems (1) Odynophagia Assessment/Plan: Cont IVF GI consult Probable EGD Code(s): R13.10 - DYSPHAGIA, UNSPECIFIED (2) HIV (human immunodeficiency virus infection) Assessment/Plan: Cont antivirals Code(s): B20 - HUMAN IMMUNODEFICIENCY VIRUS [HIV] DISEASE
[2016-10-04] MEDS ORDERED: LIDOCAINE HCL/PF 2% SDV 5ML VIAL ONE (14:17)
[2016-10-04] MEDS ORDERED: PROPOFOL 20 ML ONE (14:17)
--- NOTE | 2016-10-04 15:32 | PN ---
Progress Note (short form) - Note Progress Note: ADDENDUM: S/P EGD with no pathology noted. Will get CT of soft tissues of neck to r/o occult process If neg, can d/c tomorrow barring unforeseen circumstances
[2016-10-04] MEDS: DEXTROSE 5%-NORMAL SALINE 1,000 ML IV SCH (19:05)
[2016-10-04 21:35] VITALS: PULSE 78; TEMP 98.7
[2016-10-04 23:59] VITALS: BP 103/61
--- NOTE | 2016-10-07 16:56 | PATH ---
Surgical Pathology Report Patient Name: MARY ALICE OCONNOR Med. Rec. #: [id number] /Age/Gender: 1985 (Age: 31) / F Account: [id number] Location: [facility] MED/SURG Taken: 10/04/2016 Received: 10/04/2016 Reported: 10/07/2016 Physicians: Aidan Putnam M.D. Specimen(s) Received A: BX DUODENUM B: BX ANTRUM Clinical History Dysphagia Normal EGD Final Diagnosis A. DUODENUM, BIOPSY: DUODENAL MUCOSA WITH CHRONIC INFLAMMATION AND, CHRISTIANO'S GLANDS HYPERPLASIA AND MILD INCREASE IN INTRAEPITHELIAL LYMPHOCYTES (SEE COMMENT). Comment: The finding is nonspecific and may be seen in gluten sensitive enteropathy (celiac disease) and chronic duodenitis. In the presence of chronic inflammation the finding is likely related to duodenitis. Serological correlations are suggested if clinically indicated. B. STOMACH, ANTRUM, BIOPSY: GASTRIC ANTRAL AND OXYNTIC MUCOSA WITH MILD CHRONIC GASTRITIS IMMUNOSTAIN FOR H. PYLORI IS NEGATIVE FOR ORGANISMS. Electronically Signed Duy Bangura M.D. Gross Description A. Received in formalin, labeled "biopsy duodenum" are 2 espinal, irregular portions of soft tissue measuring 0.2 and 0.3 cm in greatest dimension. The specimens are submitted in toto in one cassette. B. Received in formalin, labeled "biopsy antrum" are 2 espinal, irregular portions of soft tissue measuring 0.3 and 0.4 cm in greatest dimension. The specimens are submitted in toto in one cassette. 10/04/201610/04/2016
== END 2016-10-05 00:21 | disposition home or self-care (01) | DRG 243 ==
LOC: JER 11:17 → JERFT 11:17 → JERBED 14:51 → J7W 16:52
PROVIDERS: ADMIT Internal Medicine; ATTEND Internal Medicine
PROC: 0DB68ZX Excision of Stomach, Via Natural or Artificial Opening Endoscopic, Diagnostic (ICD-10-PCS; 2016-10-04)
PROC: 0DB98ZX Excision of Duodenum, Via Natural or Artificial Opening Endoscopic, Diagnostic (ICD-10-PCS; principal; 2016-10-04 13:30)
DX: K20.9 Esophagitis, unspecified (principal); R63.4 Abnormal weight loss; R13.19 Other dysphagia; B20 Human immunodeficiency virus [HIV] disease; Z68.20 Body mass index [BMI] 20.0-20.9, adult
CPT/HCPCS: 36415; 70490-TC; 80053; 84703; 85025; 85610; 86850; 86900; 86901; 87324; 87449; 88305-TC; 99283-25

== ENCOUNTER 2023-08-29 18:47 | Emergency (ER) | payer OTHER ==
[2023-08-29 19:04] VITALS: BP 130/84; PULSE 118; RESP 21; TEMP 100.4; BMI 28.0
[2023-08-29] MEDS ORDERED: ACETAMINOPHEN 500 MG TABLET (FP) ONE (20:11)
[2023-08-29] MEDS: ACETAMINOPHEN 500 MG TABLET (FP) PO ONE (20:13)
== END 2023-08-29 20:43 | disposition home or self-care (01) ==
LOC: JERFT 18:47 → JER 18:47 → JERFT 20:43
DX: R05.9 Cough, unspecified (principal); J06.9 Acute upper respiratory infection, unspecified; R51.9 Headache, unspecified; R09.81 Nasal congestion; M79.10 Myalgia, unspecified site; R50.9 Fever, unspecified; R53.81 Other malaise; Z20.822 Contact with and (suspected) exposure to COVID-19
CPT/HCPCS: 0241U-QW; 71046-TC-FY; 99284-25